=== PATIENT | female | born 1960 | race Caucasian/White ===

== ENCOUNTER 2017-02-17 10:20 | Day surgery (SDC) | payer OTHER ==
[~2017-02-17] VITALS: Ht 170.2 cm; Wt 77.1 kg
[~2017-02-17 10:20] MED LIST: AMOX-366 PO; LACT1CAP64 PO; Sodium Chloride LOK Flush 10 mL Syringe IV PRN; fentaNYL-PF 50 mCg/mL 2 mL Inj IVPUSH PRN
[2017-02-17] MEDS ORDERED: CHOL500011 PO (11:05)
[2017-02-17] MEDS ORDERED: OMEG500C PO (11:05)
[2017-02-17] MEDS: 0.9% Sodium Chloride 1,000 ML IV SCH ×3 (11:08→12:00)
[2017-02-17 11:09] VITALS: BP 120/65; PULSE 50; RESP 16; O2SAT 100
[2017-02-17 12:04] VITALS: BP 103/64; PULSE 61; RESP 16; O2SAT 99
[2017-02-17 12:14] VITALS: BP 96/55; PULSE 47; RESP 16; O2SAT 100
[2017-02-17 12:24] VITALS: BP 107/55; PULSE 59; RESP 16; O2SAT 100
[2017-02-17 12:35] VITALS: BP 103/63; PULSE 58; RESP 12; O2SAT 100
--- NOTE | 2017-02-17 12:41 | ENDO ---
[address] [address] ENDOSCOPY PROCEDURE PATIENT: GIOVANNY RYAN : 1960 MR#: [id number] ADMIT: 02/17/2017 JOB ID: [id number] DATE: 02/17/2017 PROCEDURE: Colonoscopy. INDICATION: Screening. Patient's ASA classification is two. Mallampati score is two. MEDICATIONS: Versed 6 mg, fentanyl 2525 mcg. INSTRUMENT USED: PCF H 190 L. PREPARATION QUALITY: Fair. PROCEDURE DETAILS: After informed consent was obtained, the patient was brought to the GI suite where she was placed on oxygen via nasal cannula and monitored with continuous pulse oximeter, telemetry, and blood pressure monitoring. A time-out was performed, then she was placed in the left lateral decubitus position and medications were administered for sedation. Digital rectal exam was performed which was unremarkable. The colonoscope was then inserted into the rectum and advanced under direct visualization to the cecum, which was identified by the presence of the ileocecal valve and appendiceal orifice. Once the cecum was reached, the colonoscope was withdrawn back into the rectum as the mucosa and lumen were examined. In the rectum, retroflexion was performed. Following retroflexion, the remaining air in the rectum was suctioned and the procedure was completed. FINDINGS: In the cecum there was a flat polyp that measured approximately 8 mm that was lifted using normal saline and then removed with a hot snare. The resulting mucosal defect was approximated with the placement of one hemoclip. Just adjacent to this was a smaller polyp that was a sessile polyp, measured approximately 5 mm, and was removed with a hot snare. The remainder the colon exam was otherwise unremarkable. IMPRESSION: Two cecal polyps. RECOMMENDATIONS: 1. Avoid NSAIDs and anticoagulants for 72 hours. 2. Repeat colonoscopy pending polyp pathology results. COMPLICATIONS: None. ESTIMATED BLOOD LOSS: Less than 5 mL.
--- NOTE | 2017-02-21 11:18 | PATH ---
SURGICAL PATHOLOGY Attending Physician:Shawn Alvarez CASE STATUS: Signed Out PATIENT NAME: GIOVANNY RYAN PID: [id number] : 1960 DATE COLLECTED:02/17/2017 19:26 SPECIMEN: Colon, Polyp CLINICAL HISTORY: 1). CECAL POLYPS X 2 FINAL DIAGNOSIS: 1.CECAL POLYPS, BIOPSY: - FRAGMENTS OF SERRATED POLYP, FAVOR SESSILE SERRATED ADENOMA. - MULTIPLE FRAGMENTS OF COLONIC MUCOSA, FEW WITH BENIGN LYMPHOID AGGREGATES, NEGATIVE FOR DYSPLASIA AND MALIGNANCY. COMMENT: As part of routine vice president quality the case was also reviewed by Ted Tovar, who agrees with the above interpretation. ICD10 D12.6 GROSS DESCRIPTION: The specimen is received in one formalin filled container labeled with the patient's name, sublabeled "cecal polyps X2" and consists of multiple portions of tissue which aggregate to 0.6 x 0.6 x 0.5 CM. The specimen is entirely submitted in one cassette. 02/17/2017DC MICRO DESCRIPTION: See diagnosis. ICD-9 CODES: CPT CODES: 1: 20327 Electronically Signed Out Christopher Desir MD [facility] Pathology [facility] [address], [place] [address] Technical component performed at [facility], [facility] [address], [place], [address]
== END 2017-02-17 23:59 | disposition home or self-care (01) ==
LOC: END 10:20
PROVIDERS: ATTEND Internal Medicine Gastroenterology
DX: Z12.11 Encounter for screening for malignant neoplasm of colon (principal); D12.0 Benign neoplasm of cecum; R00.1 Bradycardia, unspecified; F41.0 Panic disorder [episodic paroxysmal anxiety]; Z90.710 Acquired absence of both cervix and uterus; Z87.891 Personal history of nicotine dependence
CPT/HCPCS: 45381; 45385; 99153; G0500; J2250; J3010; J7030